=== PATIENT | male | born 1975 | race Two or more races ===

== ENCOUNTER 2024-01-09 19:24 | Emergency (ER) | payer SELFPAY ==
[~2024-01-09] VITALS: Ht 172.7 cm; Wt 80.0 kg
[2024-01-09 19:31] VITALS: O2SAT 100
[2024-01-09] MEDS: HALOPERIDOL LACTATE 5MG/ML VIAL IM ONE (20:39)
[2024-01-09] MEDS: LORAZEPAM 2MG/ML INJ IM ONE (20:39)
[2024-01-09] MEDS: DIPHENHYDRAMINE 50MG/ML VIAL IM ONE (20:39)
[2024-01-10 01:45] LABS: CHLORIDE 109 mEq/L (98-107); POTASSIUM 3.8 mEq/L (3.5-5.1); SODIUM 140 mEq/L (136-145)
[2024-01-10 01:46] LABS: CALCIUM 9.2 mg/dL (8.7-10.4); CARBON DIOXIDE 28 mEq/L (21-32)
[2024-01-10 01:50] LABS: BASOPHILS % 0.9 % (0.0-2.0); EOSINOPHILS % 2.4 % (0.0-5.0); HEMATOCRIT. 30.1 % (42.0-52.0); HEMOGLOBIN. 9.9 g/dL (14.0-18.0); LYMPHOCYTES % 23.2 % (20.0-50.0); MEAN CORPUSCULAR HEMOGLOBIN 28.5 pg (28.0-32.0); MEAN CORPUSCULAR VOLUME 86.5 fL (80.0-94.0); MEAN PLATELET VOLUME 7.9 fl (7.4-10.4); MONOCYTES % 10.4 % (2.0-8.0); NEUTROPHILS % 63.1 % (40.0-76.0); PLATELET 330 x1000/uL (130-400); RED BLOOD CELL COUNT 3.48 mill/uL (4.7-6.1); RED CELL DISTRIBUTION WIDTH 17.5 % (11.6-14.6)
[2024-01-10 01:51] LABS: CREATININE 0.6 mg/dL (0.6-1.3); GLUCOSE 96 mg/dL (70-105); UREA NITROGEN BLOOD 10 mg/dL (9-23)
[2024-01-10 01:56] LABS: ETHANOL BLOOD < 10 mg/dL (<10)
[2024-01-10 03:15] VITALS: BP 130/85; PULSE 89; RESP 20; TEMP 98.9
== END 2024-01-10 03:26 | disposition home or self-care (01) ==
LOC: EDBD 19:24 → ER 19:24
DX: R45.1 Restlessness and agitation (principal); R41.82 Altered mental status, unspecified
CPT/HCPCS: 36415; 70450; 96372; 99291; 80048; 80320; 85025; J1200; J1630; J2060; G0480